=== PATIENT | male | born 1975 | race Caucasian/White ===

== ENCOUNTER 2018-03-14 13:25 | Emergency (ER) | payer MEDICAID, OTHER ==
[2018-03-14] MEDS: IBUPROFEN 800 MG TAB PO (14:08)
== END 2018-03-14 14:10 | disposition home or self-care (01) ==
LOC: FTE 13:25
DX: L02.416 Cutaneous abscess of left lower limb (principal)
CPT/HCPCS: 10060; 99284-25

== ENCOUNTER 2018-03-21 14:27 | Emergency (ER) | payer OTHER, MEDICAID ==
[2018-03-21] MEDS: LIDOCAINE 1% (MDV) 10 ML INJ INFIL (16:07)
== END 2018-03-21 17:12 | disposition home or self-care (01) ==
LOC: FTE 14:27
DX: L02.415 Cutaneous abscess of right lower limb (principal)
CPT/HCPCS: 10060; 99282-25